=== PATIENT | male | born 1995 | race Caucasian/White ===

== ENCOUNTER 2016-10-19 22:44 | Emergency (ER) | payer OTHER ==
[~2016-10-19] VITALS: Ht 185.4 cm; Wt 78.0 kg
[2016-10-19 22:48] VITALS: BP 137/73; PULSE 91; TEMP 36.9; O2SAT 98; Ht 185.4 cm; Wt 78.0 kg
--- NOTE | 2016-10-20 00:07 | EMERGENCY ROOM VISIT NOTE ---
History First contact with patient: 23:04 Chief Complaint: EYE ASSESSMENT Stated Complaint: EYE ASSESSMENT History of Present Illness The patient is a 20 year old male who presents to the Emergency Room with complaints of a mild frontal headache and preceding visual disturbance. The patient reports that he started to notice some mild visual disturbance while sitting in class this evening. He reports that it seemed like he was getting darker toward the center of his vision, then started to develop some flashing lights peripherally. When he left class and started to walk back to his apartment, he then started to develop a headache. The patient reports that his symptoms lasted approximately 30 minutes, then the visual disturbance resolved with persistent headache that has not worsened. The patient reports that he has had similar visual disturbances in the past, and has seen his wares sorter at home on several occasions without any abnormal findings. He reports that he has not been referred to a neurologist. The patient denies any personal or strong family history of migraines. The patient reports that he does not have any significant photophobia or phonophobia. He does occasionally get nausea. The patient denies any recent head injuries, upper respiratory infections, neck pain, sore throat or fever. At the current time he denies any visual disturbance or headache. The patient was transported here via [facility] ambulance for evaluation. Review of Systems 10 system review was performed and was negative except for pertinent positives and negatives as indicated in history of present illness Past Medical/Surgical History Medical Problems: (1) Visual disturbances Surgical Problems: (1) No history of previous surgery Family History Unremarkable Social History Smoking Status: Never Smoker Alcohol Use: none Marital Status: single Occupation Status: [employer] student Current/Historical Medications No Active Prescriptions or Reported Meds Allergies Coded Allergies: No Known Allergies (Unverified , 10/19/16) Physical Exam Vital Signs Date Time Temp Pulse Resp B/P Pulse Ox O2 Delivery O2 Flow Rate FiO2 10/19/16 22:48 36.9 91 18 137/73 98 Room Air Right Eye Acuity: 40/20 Left Eye Acuity: 30/20 Pain Rating (0-10): 0 Physical Exam CONSTITUTIONAL: Healthy and well nourished. Alert and oriented X 3 with positive affect. Patient does not appear in any acute distress. HEENT: Normocephalic, atraumatic. Pupils equal, round and reactive. Ears and nares are clear. No scleral icterus or conjunctival injection. EOMs intact. Patient has full field of view on exam. Visual acuity is also normal. No tenderness to palpation of the temporal regions. NECK: Full active range of motion without discomfort. No JVD or carotid bruits. LYMPHATICS: No cervical chain adenopathy. RESPIRATORY: Clear to auscultation bilaterally with no wheezing, crackles, rhonchi or stridor. CARDIOVASCULAR: Regular rate and rhythm with no murmurs, rubs or gallops. MUSCULOSKELETAL: Full range of motion of all joints without discomfort. INTEGUMENTARY: No rash or other significant dermatologic conditions noted. NEUROLOGIC: Cranial nerves II-XII grossly intact. No focal neurologic deficits noted. Normal finger to nose test. Negative pronator drift. No ataxia with ambulation. Medical Decision & Procedures ED Course Patient history and physical exam were performed. Nurse's notes were reviewed. Vital signs were reviewed and were normal. At the time of my exam, the patient denied any symptoms. The patient reports that he has had prior visual disturbances in the past that have been thoroughly evaluated by an wares sorter. Because of his symptoms and current headache, I highly suspect an atypical migraine. I recommended that the patient have a neurology evaluation. The patient was reassured that since his symptoms are completely resolved at this point, I do not suspect any severe etiologies at this time. He was provided contact information for Dr. Kinney. He was instructed to return to the emergency department for any worsening symptoms, developing fever, weakness or other significant concerns. The patient was happy with plan of care , and voiced understanding of all discharge instructions. It is noted that the patient refused any additional imaging or laboratory workup. Medical Decision Previous section Impression Primary Impression: Atypical migraine Additional Impression: Visual disturbance Departure Information Dispostion Home / Self-Care Prescriptions No Active Prescriptions or Reported Meds Referrals Cleve Kinney M.D. No Doctor, Assigned (PCP) Forms HOME CARE DOCUMENTATION FORM, IMPORTANT VISIT INFORMATION Patient Instructions [facility] Additional Instructions Suggest follow-up with neurology (Dr. Kinney) for further reevaluation. Call their office and tell them that you were referred from the emergency department for a possible atypical migraine, and that you have had visual disturbances in the past that have been evaluated by ophthalmology. Ibuprofen or Tylenol as needed for pain. Return to the emergency department for any progressively worsening symptoms. Problem Qualifiers
== END 2016-10-19 23:42 | disposition home or self-care (01) ==
LOC: C.EDC 22:46
DX: G43.809 Other migraine, not intractable, without status migrainosus (principal)